=== PATIENT | male | born 1940 | race Caucasian/White ===

== ENCOUNTER 2016-07-26 09:22 | Emergency (ER) | payer OTHER ==
[~2016-07-26] VITALS: Ht 170.2 cm; Wt 93.0 kg
--- NOTE | 2016-07-26 11:16 | ED SKIN/ALLERGY COMPLAINT ---
History of Present Illness General Chief Complaint: Laceration Procedure Stated Complaint: LAC TO 3RD DIGIT ON RIGHT FOOT, Source: patient Exam Limitations: no limitations Vital Signs & Intake/Output Vital Signs & Intake/Output Vital Signs Date Time Temp Pulse Resp B/P B/P Pulse O2 O2 Flow FiO2 Mean Ox Delivery Rate 07/26 0933 98.1 61 18 115/63 99 Room Air Allergies Coded Allergies: No Known Allergies (07/26/16) Triage Note: 75 Y/O MALE C/O LACERATION TO MIDDLE TOE ON R TOE. STATES AROUND NOON YESTERDAY, HE WAS TRYING TO SCRAPE OFF A CORN ON TOE WITH A KNIFE. STATES "I THINK I TOOK TOO MUCH SKIN". STATES SITE WILL NOT STOP BLEEDING. ON XARELTO. PT HAS AREA WRAPPED WITH PIECE OF T SHIRT AND BAG. BLEEDING NOTED ON SHIRT BUT NOT COMING THROUGH Triage Nurses Notes Reviewed? yes Onset: Abrupt Duration: hour(s):, continues in ED Timing: single episode today Severity: severe HPI: Patient presents for evaluation of a bleeding laceration to the bottom of the third toe of his right foot. Patient states he was trying to "take a corn off" with a knife and cut himself. This occurred yesterday at about 12 noon. He takes XARALTO. Past History Travel History Traveled to [place] past 21 day No Medical History Any Pertinent Medical History? see below for history Neurological: NONE EENT: NONE Cardiovascular: AFIB, AORTIC VALVE REPLACED HIGH CHOLESTEROL CONGESTIVE HEART FAILURE Respiratory: obstructive sleep apnea Gastrointestinal: NONE Hepatic: NONE Renal: NONE Musculoskeletal: NONE Psychiatric: NONE Endocrine: hypothyroidism Blood Disorders: NONE Cancer(s): NONE ATTENDING AMBULATORY CARE/Reproductive: NONE Surgical History Surgical History: non-contributory Psychosocial History What is your primary language B[place]udian Tobacco Use: Quit >30 days ago Family History Hx Contributory? No Review of Systems Review of Systems Constitutional: Reports: no symptoms. EENTM: Reports: no symptoms. Respiratory: Reports: no symptoms. Cardiovascular: Reports: no symptoms. GI: Reports: no symptoms. Genitourinary: Reports: no symptoms. Musculoskeletal: Reports: no symptoms. Skin: Reports: see HPI. Neurological/Psychological: Reports: no symptoms. Hematologic/Endocrine: Reports: no symptoms. Immunologic/Allergic: Reports: no symptoms. All Other Systems: Reviewed and Negative Physical Exam Physical Exam General Appearance: SEE BELOW Comments: Gen.: Well-nourished, well-developed, no acute respiratory distress. Head: Normocephalic, atraumatic. Eyes: Normal inspection bilaterally Ears: Normal inspection bilaterally Nose: Normal inspection, nasal cannula in place Throat/mouth : Moist mucosa Neck: Supple, full range of motion, no goiter Heart: Regular rate and rhythm Lungs: Quiet respirations Back: Normal range of motion Extremities: Right third toe: 2 x 2 millimeter avulsion laceration of the plantar aspect with mild to moderate oozing of blood Neurologic: Cranial nerves grossly intact, speech is clear Skin: warm and dry Psychiatric: Calm, cooperative, no apparent delusions or hallucinations Progress Differential Diagnosis: LACERATION Plan of Care: Wound care Comments: Patient's wound was cauterized with silver nitrite with resolution of bleeding. The wound was then dressed with a Surgicel dressing. Departure Departure Disposition: HOME OR SELF CARE Condition: Stable Clinical Impression Primary Impression: Superficial laceration of right foot Qualifiers: Encounter type: initial encounter Qualified Code: S91.311A - Laceration without foreign body, right foot, initial encounter Referrals: BLADE GROSSMAN,BILLIE Glass (PCP/Family) Additional Instructions: Keep the dressing in place for one day then remove it and replace it with a Band -Aid. Notify your primary care doctor of this emergency department visit and treatment plan on Friday and arrange for follow-up appointment if needed. Return if any concerns or sudden worsening. Thank you for choosing the [facility] Emergency Department for your care. It was a pleasure to serve you today. Willian Lombardi M.D. [facility] Departure Forms: Customer Survey General Discharge Information
[2016-07-26 11:22] VITALS: BP 135/84
== END 2016-07-26 11:23 ==
LOC: ERH 09:22
DX: S91.114A Laceration without foreign body of right lesser toe(s) without damage to nail, initial encounter (principal); W26.0XXA Contact with knife, initial encounter; Y93.89 Activity, other specified; Y92.9 Unspecified place or not applicable